=== PATIENT | male | born 1985 | race Caucasian/White ===

== ENCOUNTER 2016-12-04 13:09 | Emergency (ER) | payer SELFPAY ==
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
[2016-12-04 13:40] VITALS: BP 147/89
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
[2016-12-04] MEDS ORDERED: HYDR-2758 PO (14:02)
== END 2016-12-04 14:30 | disposition home or self-care (01) ==
LOC: ER 13:09
DX: S20.212A Contusion of left front wall of thorax, initial encounter (principal); W22.8XXA Striking against or struck by other objects, initial encounter; Y93.89 Activity, other specified; Y99.8 Other external cause status; Y92.89 Other specified places as the place of occurrence of the external cause
CPT/HCPCS: 71101; 99284

== ENCOUNTER 2017-12-24 04:05 | Emergency (ER) | payer OTHER ==
[~2017-12-24] VITALS: Ht 177.8 cm; Wt 102.1 kg
[~2017-12-24 04:05] MED LIST: HYDR-2758 PO
--- NOTE | 2017-12-24 04:10 | ED.ADGEN ---
Past History Past Medical History: No Pertinent History (TYALER DE LA TORRE MD) Past Surgical History: No Surgical History (TAYLER DE LA TORRE MD) Alcohol Use: None Drug Use: None (TAYLER DE LA TORRE MD) Adult General Chief Complaint Chief Complaint ".. I woke up with this severe Rt. lower back pain.. It is the worse pain.. I ve ever had..." (TAYLER DE LA TORRE MD) HPI HPI Patient is a 32 year old male who presents with above hx and complaints Rt. flank pain and Lt and Rt. low back pain.. Pt. rates his pain 10/10. Nothing has helped relieve the pain. Pt. denies any trauma, bad food or ill contacts. Pt. denies prior hx of GI problems or renal stones. 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 Pt. pain was acute onset that awoke him from sleep. Pt. very diaphoretic and anxious. Pt. reports he is unable to get in a comfortable position and very restless. Pt. does not remember the last time he urinated. Reports normal stool yesterday, but was somewhat constipated. Pt. complaints of nausea and vomiting. Pt. did attempt vomit/ dry heaves during his initial work up several times . (TAYLER DE LA TORRE MD) Review of Systems Review of Systems Constitutional: Denies fever or chills [] Eyes: Denies change in visual acuity, redness, or eye pain [] HENT: Denies nasal congestion or sore throat [] Respiratory: Denies cough or shortness of breath [] Cardiovascular: No additional information not addressed in HPI [] GI: Complaints of Rt. flank and lower rt. abdominal pain, nausea, vomiting,. Denies bloody stools or diarrhea [] : Denies dysuria or hematuria [] Musculoskeletal: Rt flank back pain . denies joint pain [] Integument: Denies rash or skin lesions [] Neurologic: Denies headache, focal weakness or sensory changes [] Endocrine: Denies polyuria or polydipsia [] All other systems were reviewed and found to be within normal limits, except as documented in this note. (TAYLER DE LA TORRE MD) Family History Family History Non-contributory (TAYLER DE LA TORRE MD) Current Medications Current Medications Current Medications Medications (Trade) Dose Ordered Sig/Kerry Start Time Stop Time Status Last Admin Dose Admin Famotidine (Pepcid Vial) 20 mg 1X ONCE 12/24/17 05:00 12/24/17 05:01 DC 12/24/17 04:51 20 MG Lactated Ringer's 1,000 ml @ 1,000 mls/hr 1X ONCE 12/24/17 06:00 12/24/17 06:59 DC 12/24/17 06:08 1,000 MLS/HR Morphine Sulfate (Morphine 10mg Syringe) 10 mg 1X ONCE 12/24/17 06:00 12/24/17 06:01 DC 12/24/17 05:44 10 MG Ondansetron HCl (Zofran Odt) 8 mg 1X ONCE 12/24/17 05:00 12/24/17 05:01 DC 12/24/17 04:52 8 MG Ondansetron HCl (Zofran) 8 mg 1X ONCE 12/24/17 05:15 12/24/17 05:16 DC 12/24/17 05:44 8 MG (DARCIE AMARO MD) Allergies Allergies Allergies Coded Allergies Type Severity Reaction Last Updated Verified No Known Drug Allergies 12/04/16 No (DARCIE AMARO MD) Physical Exam Physical Exam Constitutional: Well developed, well nourished, in acute distress, ill in appearance. [] HENT: Normocephalic, atraumatic, bilateral external ears normal, oropharynx moist, no oral exudates, nose normal. [] Eyes: PERRLA, EOMI, conjunctiva normal, no discharge. [] Neck: Normal range of motion, no tenderness, supple, no stridor. [] Cardiovascular:Tachycardia Heart rate regular rhythm, no murmur [] Lungs & Thorax: Bilateral breath sounds equal at apex with scattered wheezes on auscultation [] Abdomen: Bowel sounds decrease, soft, Rt. lower abd. tenderness, no masses, no pulsatile masses. Rt flank pain. Skin: Warm, diaphoretic, no erythema, no rash. [] Back: No tenderness, Rt CVA tenderness. [] Extremities: No tenderness, no cyanosis, no clubbing, ROM intact, no edema. [] Guarded gait. Neurologic: Alert and oriented X 3, normal motor function, normal sensory function, no focal deficits noted. [] Psychologic: Affect anxious , judgement normal, mood normal. [] (TAYLER DE LA TORRE MD) Current Patient Data Vital Signs Vital Signs Date Time Temp Pulse Resp B/P (MAP) Pulse Ox O2 Delivery O2 Flow Rate FiO2 12/24/17 08:04 92 16 154/90 (111) 92 Room Air 12/24/17 04:20 97.2 (DARCIE AMARO MD) Lab Results Laboratory Tests Test 12/24/17 04:35 White Blood Count 10.5 x10^3/uL (4.0-11.0) Red Blood Count 5.17 x10^6/uL (4.30-5.70) Hemoglobin 16.1 g/dL (13.0-17.5) Hematocrit 46.1 % (39.0-53.0) Mean Corpuscular Volume 89 fL (79-100) Mean Corpuscular Hemoglobin 31 pg (25-35) Mean Corpuscular Hemoglobin Concent 35 g/dL (31-37) Red Cell Distribution Width 13.2 % (11.5-14.5) Platelet Count 243 x10^3/uL (140-400) Neutrophils (%) (Auto) 65 % (31-73) Lymphocytes (%) (Auto) 24 % (24-48) Monocytes (%) (Auto) 8 % (0-9) Eosinophils (%) (Auto) 2 % (0-3) Basophils (%) (Auto) 1 % (0-3) Neutrophils # (Auto) 6.8 x10^3uL (1.8-7.7) Lymphocytes # (Auto) 2.6 x10^3/uL (1.0-4.8) Monocytes # (Auto) 0.8 x10^3/uL (0.0-1.1) Eosinophils # (Auto) 0.2 x10^3/uL (0.0-0.7) Basophils # (Auto) 0.1 x10^3/uL (0.0-0.2) Prothrombin Time 10.2 SEC (9.4-11.4) Prothrombin Time INR 1.0 (0.9-1.1) PTT 21 SEC (23-33) L Sodium Level 141 mmol/L (136-145) Potassium Level 3.7 mmol/L (3.5-5.1) Chloride Level 104 mmol/L (98-107) Carbon Dioxide Level 27 mmol/L (21-32) Anion Gap 10 (6-14) Blood Urea Nitrogen 12 mg/dL (8-26) Creatinine 1.6 mg/dL (0.7-1.3) H Estimated GFR (Cockcroft-Gault) 50.0 Glucose Level 226 mg/dL (70-99) H Calcium Level 8.7 mg/dL (8.5-10.1) Total Bilirubin 0.2 mg/dL (0.2-1.0) Direct Bilirubin < 0.1 mg/dL (0.0-0.2) Aspartate Amino Transferase (AST) 17 U/L (15-37) Alanine Aminotransferase (ALT) 26 U/L (16-63) Alkaline Phosphatase 144 U/L (46-116) H Creatine Kinase 92 U/L (39-308) Creatine Kinase MB (Mass) < 0.5 ng/mL (0.0-3.6) Creatine Kinase MB Relative Index 0.5 % (0-4) Troponin I Quantitative < 0.017 ng/mL (0-0.055) Total Protein 7.2 g/dL (6.4-8.2) Albumin 3.8 g/dL (3.4-5.0) Lipase 76 U/L (73-393) (DARCIE AMARO MD) Lab Results Laboratory Tests Test 12/24/17 04:35 White Blood Count 10.5 x10^3/uL (4.0-11.0) Red Blood Count 5.17 x10^6/uL (4.30-5.70) Hemoglobin 16.1 g/dL (13.0-17.5) Hematocrit 46.1 % (39.0-53.0) Mean Corpuscular Volume 89 fL (79-100) Mean Corpuscular Hemoglobin 31 pg (25-35) Mean Corpuscular Hemoglobin Concent 35 g/dL (31-37) Red Cell Distribution Width 13.2 % (11.5-14.5) Platelet Count 243 x10^3/uL (140-400) Neutrophils (%) (Auto) 65 % (31-73) Lymphocytes (%) (Auto) 24 % (24-48) Monocytes (%) (Auto) 8 % (0-9) Eosinophils (%) (Auto) 2 % (0-3) Basophils (%) (Auto) 1 % (0-3) Neutrophils # (Auto) 6.8 x10^3uL (1.8-7.7) Lymphocytes # (Auto) 2.6 x10^3/uL (1.0-4.8) Monocytes # (Auto) 0.8 x10^3/uL (0.0-1.1) Eosinophils # (Auto) 0.2 x10^3/uL (0.0-0.7) Basophils # (Auto) 0.1 x10^3/uL (0.0-0.2) Prothrombin Time 10.2 SEC (9.4-11.4) Prothrombin Time INR 1.0 (0.9-1.1) PTT 21 SEC (23-33) L Sodium Level 141 mmol/L (136-145) Potassium Level 3.7 mmol/L (3.5-5.1) Chloride Level 104 mmol/L (98-107) Carbon Dioxide Level 27 mmol/L (21-32) Anion Gap 10 (6-14) Blood Urea Nitrogen 12 mg/dL (8-26) Creatinine 1.6 mg/dL (0.7-1.3) H Estimated GFR (Cockcroft-Gault) 50.0 Glucose Level 226 mg/dL (70-99) H Calcium Level 8.7 mg/dL (8.5-10.1) Total Bilirubin 0.2 mg/dL (0.2-1.0) Direct Bilirubin < 0.1 mg/dL (0.0-0.2) Aspartate Amino Transferase (AST) 17 U/L (15-37) Alanine Aminotransferase (ALT) 26 U/L (16-63) Alkaline Phosphatase 144 U/L (46-116) H Creatine Kinase 92 U/L (39-308) Creatine Kinase MB (Mass) < 0.5 ng/mL (0.0-3.6) Creatine Kinase MB Relative Index 0.5 % (0-4) Troponin I Quantitative < 0.017 ng/mL (0-0.055) Total Protein 7.2 g/dL (6.4-8.2) Albumin 3.8 g/dL (3.4-5.0) Lipase 76 U/L (73-393) (TAYLER DE LA TORRE MD) EKG EKG [] (TAYLER DE LA TORRE MD) Radiology/Procedures Radiology/Procedures [] (TAYLER DE LA TORRE MD) Radiology/Procedures [address] [address] IMAGING REPORT Signed PATIENT: SULTANA PRINCE ACCOUNT: [id number] : 1985 LOCATION: ER AGE: 32 SEX: M EXAM STATUS: REG ER ORD. PHYSICIAN: TAYLER DE LA TORRE MD REASON: Rt. flank and lower abd. pain PROCEDURE: CT ABDOMEN PELVIS WO CONTRAST INDICATION: STONE STUDY. RT FLANK AND RIGHT SIDE ABDOMINAL PAIN.VOMITING. NO HEMATURIA. SYMPTOMS ONSET 4 HRS AGO COMPARISON: None. TECHNIQUE: Axial CT images obtained through the abdomen and pelvis without contrast. Limited assessment of solid organ structures and vasculature secondary to lack of intravenous contrast. One or more of the following individualized dose reduction techniques were utilized for this examination: 1. Automated exposure control; 2. Adjustment of the mA and/or kV according to patient size; 3. Use of iterative reconstruction technique. FINDINGS: Abdominal aorta is not aneurysmal. No intrahepatic bile duct dilation. No peripancreatic fluid collection. Spleen unremarkable. No left-sided hydronephrosis. Urinary bladder is largely decompressed. Fat-containing left inguinal hernia. Right-sided hydronephrosis with perinephric edema. 2 mm right distal ureter stone. There is some fluid adjacent to the right ureter. No periappendiceal inflammation. Small fat-containing umbilical hernia. No dilated loops of bowel to suggest obstruction. There is some haziness to a portion of the mesentery with some scattered prominent lymph nodes. A couple of the small bowel loops have prominent wall on left side of abdomen. Couple of sclerotic foci in the osseous structures which is a common finding and typically from bone island unless the patient has known history of neoplasm. Mild compression deformity T12 or Schmorl's node. Degenerative changes spine IMPRESSION: 1. Right-sided hydronephrosis with perinephric edema and some fluid adjacent to it with right distal ureter stone. Given the fluid within the region there may be calyceal rupture. 2. Questionable mild prominence of the wall couple loops of bowel in the left side of the abdomen. There is also some mild haziness to the adjacent fat. Could be secondary to contraction but inflammation of the small bowel from causes such as enteritis not excluded Electronically signed by: Cristine Luna MD (12/24/2017 7:09 AM) [facility] DICTATED AND SIGNED BY: CRISTINE LUNA MD DATE: 12/24/17 0702 CC: TAYLER DE LA TORRE MD; DARCIE AMARO MD; PCP,NO ~ (DARCIE AMARO MD) Course & Med Decision Making Course & Med Decision Making Pertinent Labs and Imaging studies reviewed. (See chart for details) CT still pending at shift change. UA still pending. Dr. Amaro- checked out 6:30 Am She will make disposition. [] (TAYLER DE LA TORRE MD) Course & Med Decision Making Evaluation of patient in ER showed 32-year-old male patient presented to Dr. De La Torre with severe right lower back and flank pain. Patient care transferred to ne at 6 AM. Patient had 2 mm right UV junction stone with hydronephrosis. Dr. Abebe consulted at 0745 and agreed with plan of outpatient treatment and follow up with office. Patient had blood sugar of 226. History of diabetes and has normal labs recently. Also patient had blood pressure of 150/95. Patient secondary to follow with his primary care physician regarding elevation of blood sugar and blood pressure. (DARCIE AMARO MD) Final Impression Final Impression 1. Suspect Renal Colic[] 2. Nausea and Vomiting. 3. Elevated Creat. 1.6 4. Elevated Glucose-226 (TAYLER DE LA TORRE MD) Problems: (1) Renal colic on right side (2) Ureterolithiasis (3) Nausea and vomiting Qualifiers: (4) Hydronephrosis Qualifiers: Qualified Codes: Q62.11 - Congenital occlusion of ureteropelvic junction (5) Acute renal insufficiency (DARCIE AMARO MD) Dragon Disclaimer Dragon Disclaimer This electronic medical record was generated, in whole or in part, using a voice recognition dictation system. (TAYLER DE LA TORRE MD) Departure Time of Disposition: 07:59 (DARCIE AMARO MD) Disposition: 01 HOME, SELF-CARE Condition: IMPROVED Patient Instructions: Diet for Kidney Stones, Kidney Stones Referrals: ALISON ABEBE Additional Instructions: Drink plenty of liquids Follow-up with urologist in 2-3 days Return to ER if not getting better Strain all of your urine Prescriptions Erik Nolan Flomax (DARCIE AMARO MD) TAYLER DE LA TORRE MD Dec 24, 2017 04:10 DARCIE AMARO MD Dec 24, 2017 08:01
[2017-12-24] MEDS ORDERED: FAMOTIDINE 20 MG/2 ML VIAL IVP ONE (05:00)
[2017-12-24] MEDS ORDERED: ONDANSETRON ODT 4 MG TAB.RAPDIS PO ONE (05:00)
[2017-12-24] MEDS ORDERED: MORPHINE SULFATE 10 MG/ML SYRINGE. SQ ONE ×2 (05:00→06:00)
[2017-12-24] MEDS ORDERED: IV RINGERS SOLUTION,LACTATED 1,000 ML IV SCH (05:00)
[2017-12-24 05:12] LABS: BASO # 0.1 x10^3/uL (0.0-0.2); BASO % 1 % (0-3); EOS # 0.2 x10^3/uL (0.0-0.7); EOS % 2 % (0-3); HEMATOCRIT 46.1 % (39.0-53.0); HEMOGLOBIN 16.1 g/dL (13.0-17.5); LYMPH # 2.6 x10^3/uL (1.0-4.8); LYMPH % 24 % (24-48); MEAN CORPUSCULAR HEMOGLOBIN 31 pg (25-35); MEAN CORPUSCULAR HGB CONC 35 g/dL (31-37); MEAN CORPUSCULAR VOLUME 89 fL (79-100); MONO # 0.8 x10^3/uL (0.0-1.1); MONO % 8 % (0-9); NEUT # 6.8 x10^3uL (1.8-7.7); NEUT % 65 % (31-73); PLATELET COUNT 243 x10^3/uL (140-400); RED BLOOD COUNT 5.17 x10^6/uL (4.30-5.70); RED CELL DISTRIBUTION WIDTH 13.2 % (11.5-14.5); WHITE BLOOD COUNT 10.5 x10^3/uL (4.0-11.0)
[2017-12-24] MEDS ORDERED: ONDANSETRON PF 4 MG/2 ML VIAL. IV ONE (05:15)
[2017-12-24 05:34] LABS: ALBUMIN 3.8 g/dL (3.4-5.0); ALK PHOS 144 U/L (46-116); ALT (SGPT) 26 U/L (16-63); ANION GAP 10 (6-14); AST (SGOT) 17 U/L (15-37); BLOOD UREA NITROGEN 12 mg/dL (8-26); CALCIUM 8.7 mg/dL (8.5-10.1); CARBON DIOXIDE 27 mmol/L (21-32); CHLORIDE 104 mmol/L (98-107); CREATININE 1.6 mg/dL (0.7-1.3); GLUCOSE 226 mg/dL (70-99); LIPASE 76 U/L (73-393); POTASSIUM 3.7 mmol/L (3.5-5.1); SODIUM 141 mmol/L (136-145); TOTAL BILIRUBIN 0.2 mg/dL (0.2-1.0); TOTAL PROTEIN 7.2 g/dL (6.4-8.2)
[2017-12-24 05:36] LABS: DIRECT BILIRUBIN < 0.1 mg/dL (0.0-0.2)
[2017-12-24] MEDS ORDERED: IV RINGERS SOLUTION,LACTATED 1,000 ML IV ONE (06:00)
--- NOTE | 2017-12-24 07:13 | RAD ---
INDICATION: STONE STUDY. RT FLANK AND RIGHT SIDE ABDOMINAL PAIN.VOMITING. NO HEMATURIA. SYMPTOMS ONSET 4 HRS AGO COMPARISON: None. TECHNIQUE: Axial CT images obtained through the abdomen and pelvis without contrast. Limited assessment of solid organ structures and vasculature secondary to lack of intravenous contrast. One or more of the following individualized dose reduction techniques were utilized for this examination: 1. Automated exposure control; 2. Adjustment of the mA and/or kV according to patient size; 3. Use of iterative reconstruction technique. FINDINGS: Abdominal aorta is not aneurysmal. No intrahepatic bile duct dilation. No peripancreatic fluid collection. Spleen unremarkable. No left-sided hydronephrosis. Urinary bladder is largely decompressed. Fat-containing left inguinal hernia. Right-sided hydronephrosis with perinephric edema. 2 mm right distal ureter stone. There is some fluid adjacent to the right ureter. No periappendiceal inflammation. Small fat-containing umbilical hernia. No dilated loops of bowel to suggest obstruction. There is some haziness to a portion of the mesentery with some scattered prominent lymph nodes. A couple of the small bowel loops have prominent wall on left side of abdomen. Couple of sclerotic foci in the osseous structures which is a common finding and typically from bone island unless the patient has known history of neoplasm. Mild compression deformity T12 or Schmorl's node. Degenerative changes spine IMPRESSION: 1. Right-sided hydronephrosis with perinephric edema and some fluid adjacent to it with right distal ureter stone. Given the fluid within the region there may be calyceal rupture. 2. Questionable mild prominence of the wall couple loops of bowel in the left side of the abdomen. There is also some mild haziness to the adjacent fat. Could be secondary to contraction but inflammation of the small bowel from causes such as enteritis not excluded Electronically signed by: Alex Julian MD (12/24/2017 7:09 AM) [facility]
--- NOTE | 2017-12-24 07:55 | RAD ---
Acute abdominal series with single view chest 12/24/2017 5:21 AM INDICATION: Abdominal pain, right-sided pain and vomiting. COMPARISON: Chest radiograph December 04, 2016 TECHNIQUE: Single view of the chest, upright view of the abdomen and 2 supine views of abdomen are provided. FINDINGS: The cardiomediastinal silhouette is within normal limits. There are no pleural effusions. There is no pulmonary vascular congestion. There is no pneumothorax. The lungs are clear. There is no free intraperitoneal air. There are no dilated loops of small or large bowel. Mild volume fecal contents noted throughout the colon. Rounded metallic densities within the lower pelvis are likely external to the patient. Expected phleboliths are noted in the left hemipelvis. 4 mm calcification is noted projecting over the right upper abdomen, likely within the anterior subcutaneous soft tissues as seen on subsequent imaging. No significant osseous abnormality is identified. IMPRESSION: No acute cardiopulmonary process. Nonobstructive bowel gas pattern. Subsequently obtained CT abdomen pelvis demonstrates a distal ureteral calculus which is not visualized by radiograph. Electronically signed by: Marychuy Vidales MD (12/24/2017 7:52 AM) [facility]
[2017-12-24] MEDS ORDERED: HYDR-971 PO (08:03)
[2017-12-24] MEDS ORDERED: ONDA4TAB10 SL (08:03)
[2017-12-24] MEDS ORDERED: TAMS0.4C97 PO (08:03)
[2017-12-24 08:04] VITALS: BP 154/90
[2017-12-24 08:19] LABS: BARBITURATES NEG (NEG); BENZODIAZEPINES NEG (NEG); BILIRUBIN,URINE NEG (NEG); CANNABINOIDS NEG (NEG); CLARITY,URINE CLEAR; COCAINE NEG (NEG); COLOR,URINE YELLOW; GLUCOSE,URINE NEG (NEG); METHADONE NEG (NEG); NITRITE,URINE NEG (NEG); OPIATES POS (NEG); PHENCYCLIDINE NEG (NEG); UROBILINOGEN,URINE 0.2 mg/dL (0.2 mg/dL)
[2017-12-24 08:20] LABS: AMPHETAMINE/METHAMPHETAMINE NEG (NEG)
== END 2017-12-24 08:20 | disposition home or self-care (01) ==
LOC: ER 04:05
DX: N23 Unspecified renal colic (principal); N13.2 Hydronephrosis with renal and ureteral calculous obstruction; N28.9 Disorder of kidney and ureter, unspecified
CPT/HCPCS: 36415; 74022; 74176; 80048; 80076; 80307; 81003; 82553; 83690; 84484; 85025; 85610; 85730; 93005; 96361; 96372; 96374; 96375; 99285; J2270; J2405; J7120; Q0162; S0028; G0479